=== PATIENT | female | born 1980 | race Caucasian/White ===

== ENCOUNTER 2018-09-01 17:24 | Inpatient (IN) | payer OTHER, MEDICAID ==
[2018-09-01 18:15] LABS: WHITE BLOOD COUNT 8.4 10^3/ul (4.8-10.8)
[2018-09-01 18:15] LABS: ADD MAN DIFF? NO; BASOPHILS % 0.2 % (0.0-2.0); EOSINOPHILS # 0.1 10^3/ul (0.0-0.5); EOSINOPHILS % 0.6 % (0.0-7.0); HEMATOCRIT 31.5 % (37.0-47.0); HEMOGLOBIN 10.1 g/dl (12.0-16.0); LYMPHOCYTES # 1.7 10^3/ul (0.8-2.9); LYMPHOCYTES % 20.4 % (15.0-51.0); MEAN CORPUSCULAR HEMOGLOBIN 28.1 pg (29.0-33.0); MEAN CORPUSCULAR HGB CONC 32.1 g/dl (32.0-37.0); MEAN CORPUSCULAR VOLUME 87.7 fl (82.0-101.0); MEAN PLATELET VOLUME 8.7 fl (7.4-10.4); MONOCYTE # 0.5 10^3/ul (0.3-0.9); MONOCYTES % 5.7 % (0.0-11.0); NEUTROPHIL # 6.1 10^3/ul (1.6-7.5); NEUTROPHILS % 72.7 % (39.0-77.0); PLATELET COUNT 382 10^3/UL (140-415); RED BLOOD COUNT 3.59 10^6/ul (4.20-5.40); RED CELL DISTRIBUTION WIDTH 13.6 % (11.5-14.5)
[2018-09-01 18:29] LABS: ADD UMIC YES; UR ASCORBIC ACID NEGATIVE (NEGATIVE); UR BACTERIA FEW /HPF (NONE SEEN); UR BILIRUBIN (Dip) NEGATIVE (NEGATIVE); UR BLOOD (Dip) 1+ mg/dL (NEGATIVE); UR CLARITY CLOUDY (CLEAR); UR COLOR YELLOW (YELLOW); UR GLUCOSE (Dip) NEGATIVE (NEGATIVE); UR KETONES (Dip) NEGATIVE (NEGATIVE); UR LEUKOCYTE ESTERASE (Dip) 3+ Leu/ul (NEGATIVE); UR MUCUS FEW /HPF (NONE SEEN); UR NITRITE (Dip) NEGATIVE (NEGATIVE); UR NONSQUAMOUS EPITHELIAL CELL 1 /HPF (NONE SEEN); UR RBC 8 /HPF (0-5); UR SPECIFIC GRAVITY (Dip) 1.023 (1.003-1.030); UR SQUAMOUS EPITHELIAL CELL MANY /HPF (FEW); UR TOTAL PROTEIN (Dip) 2+ mg/dl (NEGATIVE); UR UROBILINOGEN (Dip) NEGATIVE (NEGATIVE); UR WBC > 182 /HPF (0-5)
[2018-09-01 18:36] LABS: ALANINE AMINOTRANSFERASE 19 IU/L (13-69); ALBUMIN/GLOBULIN RATIO 0.93; ALKALINE PHOSPHATASE 147 IU/L (42-121); ANION GAP 7 (5-13); ASPARTATE AMINO TRANSFERASE 16 IU/L (15-46); BILIRUBIN,INDIRECT 0.4 mg/dl (0-1.1); BILIRUBIN,TOTAL 0.4 mg/dl (0.2-1.3); BLOOD UREA NITROGEN 9 mg/dl (7-20); CALCIUM 8.3 mg/dl (8.4-10.2); CARBON DIOXIDE 24 mmol/L (21-31); CHLORIDE 106 mmol/L (97-110); CREATININE 0.54 mg/dl (0.44-1.00); Estimated GFR > 60 mL/min (>60); GLUCOSE 83 mg/dl (70-220); POTASSIUM 3.7 mmol/L (3.5-5.1); SODIUM 137 mmol/L (135-144); TOTAL PROTEIN 6.2 g/dl (6.1-8.1); URIC ACID 5.9 mg/dl (3.1-7.9)
[2018-09-01] MEDS: LACTATED RINGER'S 1,000 ML IV (20:40)
[2018-09-02] MEDS: AL HYDROX/MG HYDROX/SIMETH 30 ML CUP PO ×2 (00:22→12:04)
[2018-09-02] MEDS: LACTATED RINGER'S 1,000 ML IV ×3 (02:18→17:19)
[2018-09-02] MEDS: ACETAMINOPHEN 325 MG TAB PO ×4 (04:23→21:09)
[2018-09-02] MEDS: PRENATAL VITAMIN PO (09:03)
[2018-09-02] MEDS ORDERED: CEFTRIAXONE 1 GM INJ IM (12:00)
[2018-09-02] MEDS: AMOXICILLIN/CLAV 500 MG TAB PO ×2 (14:14→21:02)
[2018-09-02] MEDS: CEFTRIAXONE 1 GM/50 ML (PMX) 50 ML IVPB (14:27)
[2018-09-02 17:59] LABS: RUPTURE FETAL MEMBRANES NEGATIVE (NEGATIVE)
[2018-09-02] MEDS ORDERED: BETAMET NA PHOS/AC(6 MG/ML) 2 ML INJ SYG IM (18:00)
[2018-09-02] MEDS: BETAMET NA PHOS/AC(6 MG/ML) 2 ML INJ SYG IM (18:47)
[2018-09-03] MEDS: LACTATED RINGER'S 1,000 ML IV ×4 (00:48→21:00)
[2018-09-03] MEDS: AL HYDROX/MG HYDROX/SIMETH 30 ML CUP PO ×2 (00:58→12:13)
[2018-09-03] MEDS: AMOXICILLIN/CLAV 500 MG TAB PO ×3 (09:28→20:59)
[2018-09-03] MEDS: PRENATAL VITAMIN PO (09:28)
[2018-09-03] MEDS ORDERED: BETAMET NA PHOS/AC(6 MG/ML) 2 ML INJ SYG IM (18:00)
[2018-09-03] MEDS: BETAMET NA PHOS/AC(6 MG/ML) 2 ML INJ SYG IM (18:43)
[2018-09-03] MEDS: ACETAMINOPHEN 325 MG TAB PO (18:54)
[2018-09-03] MEDS: RANITIDINE 150 MG TAB PO (20:59)
[2018-09-03] MEDS: ZOLPIDEM 5 MG TAB PO (22:28)
[2018-09-04] MEDS: LACTATED RINGER'S 1,000 ML IV ×4 (04:34→21:22)
[2018-09-04] MEDS: PRENATAL VITAMIN PO (09:07)
[2018-09-04] MEDS: AMOXICILLIN/CLAV 500 MG TAB PO ×3 (10:03→22:34)
[2018-09-04] MEDS: AL HYDROX/MG HYDROX/SIMETH 30 ML CUP PO ×2 (10:32→20:08)
[2018-09-04] MEDS: ACETAMINOPHEN 325 MG TAB PO (18:13)
[2018-09-04] MEDS: RANITIDINE 150 MG TAB PO (21:51)
[2018-09-05] MEDS: LACTATED RINGER'S 1,000 ML IV ×2 (01:31→09:51)
[2018-09-05] MEDS: AMOXICILLIN/CLAV 500 MG TAB PO ×3 (09:52→21:17)
[2018-09-05] MEDS: PRENATAL VITAMIN PO (09:52)
[2018-09-05] MEDS: RANITIDINE 150 MG TAB PO (17:57)
[2018-09-05] MEDS: ACETAMINOPHEN 325 MG TAB PO (17:57)
[2018-09-06] MEDS: LACTATED RINGER'S 1,000 ML IV ×5 (00:02→21:57)
[2018-09-06] MEDS: AMOXICILLIN/CLAV 500 MG TAB PO ×3 (09:07→21:09)
[2018-09-06] MEDS: PRENATAL VITAMIN PO (09:07)
[2018-09-06] MEDS: RANITIDINE 150 MG TAB PO ×2 (16:16→21:09)
[2018-09-06] MEDS: ACETAMINOPHEN 325 MG TAB PO (21:10)
[2018-09-07] MEDS: LACTATED RINGER'S 1,000 ML IV ×3 (02:42→18:57)
[2018-09-07] MEDS: AMOXICILLIN/CLAV 500 MG TAB PO ×3 (09:39→21:32)
[2018-09-07] MEDS: PRENATAL VITAMIN PO (09:39)
[2018-09-07] MEDS: RANITIDINE 150 MG TAB PO (21:32)
[2018-09-08] MEDS: LACTATED RINGER'S 1,000 ML IV ×4 (02:02→21:40)
[2018-09-08] MEDS: PRENATAL VITAMIN PO (09:15)
[2018-09-08] MEDS: AMOXICILLIN/CLAV 500 MG TAB PO ×2 (09:15→13:15)
[2018-09-08] MEDS: CLOTRIMAZOLE 1% 30 GM CR TOP (19:30)
[2018-09-08] MEDS: AL HYDROX/MG HYDROX/SIMETH 30 ML CUP PO (20:04)
[2018-09-08] MEDS ORDERED: CLOTRIMAZOLE 1% 30 GM CR TOP (21:00)
[2018-09-08] MEDS: RANITIDINE 150 MG TAB PO (22:12)
[2018-09-09] MEDS: LACTATED RINGER'S 1,000 ML IV ×3 (03:15→20:57)
[2018-09-09] MEDS: CLOTRIMAZOLE 1% 30 GM CR TOP (06:33)
[2018-09-09] MEDS: PRENATAL VITAMIN PO (09:00)
[2018-09-09] MEDS ORDERED: LACTATED RINGER'S 1,000 ML IV (09:32)
[2018-09-09] MEDS ORDERED: MISOPROSTOL 200 MCG TAB PR ×2 (10:00→19:00)
[2018-09-09] MEDS ORDERED: METHYLERGONOVINE 0.2 MG INJ IM ×2 (10:00→19:00)
[2018-09-09] MEDS ORDERED: CARBOPROST 250 MCG INJ IM ×2 (10:00→19:00)
[2018-09-09 10:12] LABS: ADD MAN DIFF? NO
[2018-09-09 10:17] LABS: WHITE BLOOD COUNT 9.8 10^3/ul (4.8-10.8)
[2018-09-09 10:17] LABS: BASOPHILS % 0.2 % (0.0-2.0); EOSINOPHILS # 0.1 10^3/ul (0.0-0.5); EOSINOPHILS % 0.8 % (0.0-7.0); HEMATOCRIT 32.9 % (37.0-47.0); HEMOGLOBIN 10.5 g/dl (12.0-16.0); LYMPHOCYTES # 2.1 10^3/ul (0.8-2.9); LYMPHOCYTES % 21.6 % (15.0-51.0); MEAN CORPUSCULAR HEMOGLOBIN 27.6 pg (29.0-33.0); MEAN CORPUSCULAR HGB CONC 31.9 g/dl (32.0-37.0); MEAN CORPUSCULAR VOLUME 86.4 fl (82.0-101.0); MEAN PLATELET VOLUME 9.5 fl (7.4-10.4); MONOCYTE # 1.2 10^3/ul (0.3-0.9); MONOCYTES % 11.9 % (0.0-11.0); NEUTROPHIL # 6.3 10^3/ul (1.6-7.5); PLATELET COUNT 356 10^3/UL (140-415); RED BLOOD COUNT 3.81 10^6/ul (4.20-5.40); RED CELL DISTRIBUTION WIDTH 14.1 % (11.5-14.5)
[2018-09-09 10:39] LABS: ALANINE AMINOTRANSFERASE 7 IU/L (13-69); ALBUMIN 3.2 g/dl (3.3-4.9); ALBUMIN/GLOBULIN RATIO 1.06; ALKALINE PHOSPHATASE 126 IU/L (42-121); ANION GAP 9 (5-13); ASPARTATE AMINO TRANSFERASE 16 IU/L (15-46); BILIRUBIN,INDIRECT 0.4 mg/dl (0-1.1); BILIRUBIN,TOTAL 0.4 mg/dl (0.2-1.3); BLOOD UREA NITROGEN 11 mg/dl (7-20); CALCIUM 9.1 mg/dl (8.4-10.2); CARBON DIOXIDE 25 mmol/L (21-31); CHLORIDE 105 mmol/L (97-110); CREATININE 0.49 mg/dl (0.44-1.00); Estimated GFR > 60 mL/min (>60); GLUCOSE 76 mg/dl (70-220); INR 0.93; POTASSIUM 4.4 mmol/L (3.5-5.1); PROTIME 12.6 Sec (11.9-14.9); SODIUM 139 mmol/L (135-144); TOTAL PROTEIN 6.2 g/dl (6.1-8.1)
[2018-09-09 11:14] LABS: HEPATITIS B SURFACE ANTIGEN NEGATIVE (NEGATIVE)
[2018-09-09] MEDS ORDERED: ONDANSETRON 4 MG INJ (13:50)
[2018-09-09] MEDS ORDERED: OXYTOCIN 30 UNITS/LR 500 ML IV ×2 (13:50→19:00)
[2018-09-09] MEDS ORDERED: morphine SULFATE/PF (10 MG/10 ML) INJ (13:50)
[2018-09-09] MEDS ORDERED: OXYTOCIN 10 UNIT INJ ×3 (13:51→14:38)
[2018-09-09] MEDS ORDERED: METOCLOPRAMIDE 10 MG INJ (13:51)
[2018-09-09] MEDS ORDERED: EPHEDrine 25 MG/5 ML SYG (14:38)
[2018-09-09] MEDS ORDERED: MIDAZOLAM 1 MG/ML 2 ML INJ (14:50)
[2018-09-09 15:07] LABS: RAPID PLASMA REAGIN NONREACTIVE (NR)
[2018-09-09] MEDS ORDERED: ONDANSETRON 4 MG INJ IV ×2 (15:30→19:00)
[2018-09-09] MEDS: morphine SULFATE/PF (10 MG/10 ML) INJ SPINAL (15:30)
[2018-09-09] MEDS ORDERED: NALOXONE (0.4 MG/ML) INJ IV (15:30)
[2018-09-09] MEDS ORDERED: DIPHENHYDRAMINE 50 MG INJ IV ×2 (15:30→19:00)
[2018-09-09] MEDS ORDERED: EPHEDrine 25 MG/5 ML SYG IV (15:30)
[2018-09-09] MEDS ORDERED: morphine 2 MG INJ IV (15:30)
[2018-09-09] MEDS: CEFAZOLIN 2 GM/50 ML (PMX) 50 ML IVPB (16:42)
[2018-09-09] MEDS: OXYTOCIN 30 UNITS/LR 500 ML IV (16:42)
[2018-09-09] MEDS: KETOROLAC 30 MG INJ IV (17:26)
[2018-09-09] MEDS ORDERED: OXYCODONE/ACETAMINOPHEN (5/325) TAB PO (19:00)
[2018-09-09] MEDS ORDERED: ZOLPIDEM 5 MG TAB PO (19:00)
[2018-09-09] MEDS: SENNA/DOCUSATE NA (8.6MG/50MG) TAB PO (21:00)
[2018-09-09] MEDS: morphine 2 MG INJ IV (21:54)
[2018-09-10] MEDS: KETOROLAC 30 MG INJ IV ×2 (03:20→09:54)
[2018-09-10] MEDS: LACTATED RINGER'S 1,000 ML IV ×2 (05:07→13:00)
[2018-09-10 08:15] LABS: ADD MAN DIFF? NO
[2018-09-10 08:16] LABS: BASOPHILS % 0.3 % (0.0-2.0); EOSINOPHILS % 0.4 % (0.0-7.0); HEMOGLOBIN 9.5 g/dl (12.0-16.0); LYMPHOCYTES # 1.4 10^3/ul (0.8-2.9); LYMPHOCYTES % 13.5 % (15.0-51.0); MEAN CORPUSCULAR HEMOGLOBIN 28.3 pg (29.0-33.0); MEAN CORPUSCULAR HGB CONC 32.8 g/dl (32.0-37.0); MEAN CORPUSCULAR VOLUME 86.3 fl (82.0-101.0); MEAN PLATELET VOLUME 9.4 fl (7.4-10.4); MONOCYTE # 0.8 10^3/ul (0.3-0.9); MONOCYTES % 7.6 % (0.0-11.0); NEUTROPHIL # 8.2 10^3/ul (1.6-7.5); NEUTROPHILS % 77.8 % (39.0-77.0); PLATELET COUNT 322 10^3/UL (140-415); RED BLOOD COUNT 3.36 10^6/ul (4.20-5.40)
[2018-09-10 08:16] LABS: WHITE BLOOD COUNT 10.5 10^3/ul (4.8-10.8)
[2018-09-10] MEDS: SENNA/DOCUSATE NA (8.6MG/50MG) TAB PO ×2 (08:34→21:37)
[2018-09-10] MEDS: morphine 2 MG INJ IV (08:34)
[2018-09-10] MEDS: CLOTRIMAZOLE 1% 30 GM CR TOP ×2 (11:12→21:36)
[2018-09-10] MEDS: OXYCODONE/ACETAMINOPHEN (5/325) TAB PO (17:38)
[2018-09-10] MEDS: IBUPROFEN 600 MG TAB PO (18:21)
[2018-09-11] MEDS: IBUPROFEN 600 MG TAB PO ×5 (00:11→23:36)
[2018-09-11] MEDS: OXYCODONE/ACETAMINOPHEN (5/325) TAB PO ×5 (00:57→18:50)
[2018-09-11] MEDS: LANOLIN HPA 1 PKT TOP (05:09)
[2018-09-11] MEDS: SENNA/DOCUSATE NA (8.6MG/50MG) TAB PO ×2 (09:05→21:22)
[2018-09-11] MEDS: CLOTRIMAZOLE 1% 30 GM CR TOP ×2 (10:18→21:22)
[2018-09-11] MEDS: BISACODYL 10 MG SUPP PR (21:22)
[2018-09-11] MEDS: RANITIDINE 150 MG TAB PO (22:27)
[2018-09-12] MEDS: OXYCODONE/ACETAMINOPHEN (5/325) TAB PO ×5 (00:45→23:17)
[2018-09-12] MEDS: IBUPROFEN 600 MG TAB PO ×3 (05:41→18:00)
[2018-09-12] MEDS: DIPHTH/TET/ACEL PERTUSS (ADULT) 0.5 ML VIAL IM* (09:00)
[2018-09-12] MEDS: SENNA/DOCUSATE NA (8.6MG/50MG) TAB PO ×2 (09:12→21:59)
[2018-09-12] MEDS: CLOTRIMAZOLE 1% 30 GM CR TOP ×2 (09:13→21:59)
[2018-09-12] MEDS ORDERED: ACETAMINOPHEN 325 MG TAB PO (15:30)
[2018-09-12] MEDS: LANOLIN HPA 1 PKT TOP (18:19)
[2018-09-12] MEDS: RANITIDINE 150 MG TAB PO (21:59)
[2018-09-13] MEDS: IBUPROFEN 600 MG TAB PO ×3 (00:07→12:00)
[2018-09-13] MEDS: OXYCODONE/ACETAMINOPHEN (5/325) TAB PO ×3 (04:33→15:09)
[2018-09-13] MEDS: CLOTRIMAZOLE 1% 30 GM CR TOP (10:35)
[2018-09-13] MEDS: SENNA/DOCUSATE NA (8.6MG/50MG) TAB PO (10:35)
[2018-09-13] MEDS: LANOLIN HPA 1 PKT TOP (10:36)
[2018-09-13] MEDS: DIPHTH/TET/ACEL PERTUSS (ADULT) 0.5 ML VIAL IM* (14:33)
== END 2018-09-13 16:10 | disposition home or self-care (01) | DRG 787 ==
LOC: OBT 17:24 → PP1 09-04 21:04 → L-D 09-09 09:54 → PP1 09-09 18:04 → OBT 18:50 → L-D 18:50
PROC: 10D00Z1 Extraction of Products of Conception, Low, Open Approach (ICD-10-PCS; principal; 2018-09-09)
PROC: 3E033VJ Introduction of Other Hormone into Peripheral Vein, Percutaneous Approach (ICD-10-PCS; 2018-09-09)
DX: O60.13X0 Preterm labor second trimester with preterm delivery third trimester, not applicable or unspecified (principal); O41.03X0 Oligohydramnios, third trimester, not applicable or unspecified; O76 Abnormality in fetal heart rate and rhythm complicating labor and delivery; Z3A.35 35 weeks gestation of pregnancy; Z37.0 Single live birth
CPT/HCPCS: 62322; 76811; 76815; 76816; 76818; 76820; 80053; 81001; 84112; 84560; 85025; 85610; 85730; 86592; 86850; 86900; 86901; 87081; 87086; 87340; 88307; 90715